=== PATIENT | female | born 1975 | race Caucasian/White ===

== ENCOUNTER 2018-04-12 19:00 | Emergency (ER) | payer OTHER ==
[2018-04-12 19:21] LABS: BASOPHILS % (AUTO) 0.4 %; EOSINOPHILS # (AUTO) 0.1 10^3/uL (0.0-0.7); EOSINOPHILS % (AUTO) 1.8 %; HGB - HEMOGLOBIN 14.1 g/dL (12.0-16.0); LYMPHOCYTES # (AUTO) 2.2 10^3/uL (1.5-3.5); LYMPHOCYTES % (AUTO) 31.8 %; MEAN CORPUSCULAR HEMOGLOBIN 31.8 pg (27.0-31.0); MEAN CORPUSCULAR HGB CONC 33.3 g/dL (32.0-36.0); MEAN CORPUSCULAR VOLUME 95.5 fL (81.0-99.0); MEAN PLATELET VOLUME 8.8 fL (7.9-10.8); MONOCYTES # (AUTO) 0.6 10^3/uL (0.0-1.0); MONOCYTES % (AUTO) 8.8 %; NEUTROPHILS # (AUTO) 3.9 10^3/uL (1.5-6.6); NEUTROPHILS % (AUTO) 57.2 %; PLT - PLATELET COUNT 221 10^3/uL (130-450); RED BLOOD COUNT 4.43 10^6/uL (4.20-5.40); RED CELL DISTRIBUTION WIDTH 12.9 % (12.0-15.0); WHITE BLOOD COUNT 6.9 x10^3/uL (4.8-10.8)
[2018-04-12] MEDS ORDERED: KETOROLAC 60 MG/2 ML VIAL IVP STA (19:22)
--- NOTE | 2018-04-12 19:24 | ED Physician Documentation ---
PD HPI ABD PAIN - Stated complaint Stated Complaint: ABD PX - Chief complaint Chief Complaint: Abd Pain - History obtained from History obtained from: Patient - History of Present Illness Timing - onset: Today Timing - duration: Hours (2) Timing - details: Abrupt onset Pain level max: 10 Pain level now: 10 Quality: Aching, Pain Location: All over / everywhere, Other (R flank) Improved by: Other (nothing) Worsened by: Other (nothing) Associated symptoms: No: Fever, Nausea, Vomiting, Hematemesis, Diarrhea, Constipation, Melena, Hematochezia, Dysuria, Hematuria, Chest pain Similar symptoms before: Diagnosis (kidney stone) Recently seen: Not recently seen Review of Systems Ten Systems: 10 systems reviewed and negative Constitutional: denies: Fever, Chills Ears: denies: Ear pain Nose: denies: Rhinorrhea / runny nose, Congestion Throat: denies: Oral lesions / sores Cardiac: denies: Chest pain / pressure Respiratory: denies: Cough, Wheezing GI: denies: Vomiting, Diarrhea, Hematemesis, Bloody / black stool : denies: Dysuria, Frequency, Hesitancy, Now EGA Skin: denies: Rash Musculoskeletal: denies: Neck pain, Back pain Neurologic: denies: Headache PD PAST MEDICAL HISTORY - Past Medical History Past Medical History: Yes Cardiovascular: 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[employer]: Endometriosis, Ovarian cysts - Past Surgical History Past Surgical History: Yes General: Cholecystectomy /[employer]NA[employer]: Other - Present Medications Home Medications: Ambulatory Orders Medication Instructions Recorded Confirmed Etonogestrel [Nexplanon] SUBQ DAILY 04/12/18 Ondansetron Odt [Zofran] 4 mg TL Q6H PRN #10 tablet 04/13/18 Oxycodone HCl/Acetaminophen 1 - 2 each PO Q6H PRN #14 tablet 04/13/18 [Percocet 5-325 mg Tablet] - Allergies Allergies/Adverse Reactions: Allergies Allergy/AdvReac Type Severity Reaction Status Date / Time erythromycin base Allergy Hives Verified 04/12/18 19:09 - Social History Does the pt smoke?: No Smoking Status: Never smoker Does the pt drink ETOH?: Yes Does the pt have substance abuse?: No - Immunizations Immunizations are current?: Yes - POLST Patient has POLST: No PD ED PE NORMAL - Vitals Vital signs reviewed: Yes - General General: Alert and oriented X 3, Well developed/nourished, Other (rocking, crying.) - HEENT HEENT: PERRL, Moist mucous membranes, Pharynx benign - Neck Neck: Supple, no meningeal sign - Cardiac Cardiac: RRR, Strong equal pulses - Respiratory Respiratory: No respiratory distress, Clear bilaterally - Abdomen Abdomen: Soft, Other (TTP R LQ, no pertioneal signs) - Back Back: No CVA TTP, No spinal TTP - Derm Derm: Warm and dry - Extremities Extremities: No edema - Neuro Neuro: Alert and oriented X 3 Results - Vitals Vitals: Vital Signs - 24 hr 04/12/18 04/12/18 04/12/18 19:05 21:45 23:03 Temperature 36.6 C Heart Rate 93 85 Respiratory 18 16 18 Rate Blood Pressure 104/85 H 100/58 L O2 Saturation 94 100 04/12/18 04/13/18 23:05 00:10 Temperature Heart Rate 84 Respiratory 19 17 Rate Blood Pressure 100/69 O2 Saturation 100 Oxygen O2 Source Room air - Labs Labs: Laboratory Tests 04/12/18 04/12/18 04/12/18 19:18 19:18 22:15 WBC 6.9 RBC 4.43 Hgb 14.1 Hct 42.3 MCV 95.5 MCH 31.8 H MCHC 33.3 RDW 12.9 Plt Count 221 MPV 8.8 Neut # (Auto) 3.9 Lymph # (Auto) 2.2 [place] # (Auto) 0.6 Eos # (Auto) 0.1 Baso # (Auto) 0.0 Absolute Nucleated RBC 0.00 Nucleated RBC % 0.0 Sodium 136 Potassium 3.5 Chloride 105 Carbon Dioxide 21 Anion Gap 10.0 BUN 16 Creatinine 0.7 Estimated GFR (MDRD) 91 Glucose 118 H Calcium 9.3 Total Bilirubin 0.8 AST 62 H ALT 34 Alkaline Phosphatase 53 Total Protein 7.5 Albumin 4.1 Globulin 3.4 Albumin/Globulin Ratio 1.2 Lipase 26 Urine Color YELLOW Urine Clarity CLEAR Urine pH 7.0 Ur Specific [place] <=1.005 Urine Protein NEGATIVE Urine Glucose (UA) NEGATIVE Urine Ketones NEGATIVE Urine Occult Blood NEGATIVE Urine Nitrite NEGATIVE Urine Bilirubin NEGATIVE Urine Urobilinogen 2 H Ur Leukocyte Esterase NEGATIVE Ur Microscopic Review NOT INDICATED Urine Culture Comments NOT INDICATED Urine HCG, Qual NEGATIVE - Rads (name of study) CT abd/pelvis Radiology: Prelim report reviewed, EMP read contemporaneously, See rad report ( No acute abnormalities. 3.7 cm right ovarian cyst) pelvic US Radiology: Prelim report reviewed, EMP read contemporaneously, See rad report ( Cyst with simple septation measuring up to 4.2 cm in the right ovary, highly likely benign. Follow-up ultrasound could be performed in 6 weeks. Normal blood flow) PD MEDICAL DECISION MAKING - ED course Complexity details: reviewed results, re-evaluated patient, considered differential, d/w patient, d/w family ED course: Patient is a 42-year-old female with acute abdominal pain tonight. Appears to have a large right ovarian cyst, no other acute findings on CT scan or ultrasound to explain her symptoms. No evidence of ovarian torsion. She does state that she is done having children. Pain is well-controlled abdomen is still mildly tender on repeat evaluation, but she is tolerating p.o. without difficulty in the emergency department. She would like to go home at this time. Patient and family counseled regarding signs and symptoms for which I believe and urgent re-evaluation would be necessary. Patient with good understanding of and agreement to plan and is comfortable going home at this time This document was made in part using voice recognition software. While efforts are made to proofread this document, sound alike and grammatical errors may occur. - Sepsis Event Vital Signs: Vital Signs - 24 hr 04/12/18 04/12/18 04/12/18 19:05 21:45 23:03 Temperature 36.6 C Heart Rate 93 85 Respiratory 18 16 18 Rate Blood Pressure 104/85 H 100/58 L O2 Saturation 94 100 04/12/18 04/13/18 23:05 00:10 Temperature Heart Rate 84 Respiratory 19 17 Rate Blood Pressure 100/69 O2 Saturation 100 Oxygen O2 Source Room air Departure - Departure Disposition: 01 Home, Self Care Clinical Impression: Ovarian cyst Qualifiers: Laterality: right Qualified Code(s): N83.201 - Unspecified ovarian cyst, right side Condition: Stable Instructions: ED Abdominal Pain Unkn Cause, ED Cyst Ovarian Follow-Up: your,doctor in 1 week [Other] Prescriptions: Ondansetron Odt [Zofran] 4 mg TL Q6H PRN #10 tablet PRN Reason: Nausea / Vomiting Oxycodone HCl/Acetaminophen [Percocet 5-325 mg Tablet] 1 - 2 each PO Q6H PRN # 14 tablet PRN Reason: pain Comments: Your symptoms appear to be related to an ovarian cyst. You should have a repeat ultrasound in approximately 6 weeks to ensure resolution. Return if you worsen. Discharge Date/Time: 04/13/18 00:10
[2018-04-12] MEDS: ONDANSETRON 4 MG/2 ML VIAL IVP STA ×2 (19:27→21:29)
[2018-04-12 19:34] LABS: ALBUMIN 4.1 g/dL (3.2-5.5); ALBUMIN/GLOBULIN RATIO 1.2 (1.0-2.2); BILIRUBIN,TOTAL 0.8 mg/dL (0.2-1.0); CALCIUM 9.3 mg/dL (8.5-10.3); CREATININE 0.7 mg/dL (0.4-1.0); TOTAL PROTEIN 7.5 g/dL (6.7-8.2)
[2018-04-12] MEDS: HYDROmorphone 1 MG/ML CARPUJECT IVP STA ×2 (20:10→21:30)
[2018-04-12] MEDS ORDERED: IOPAMIDOL-300 100 ML VIAL ONE (20:13)
[2018-04-12] MEDS ORDERED: IOPAMIDOL-300 100 ML VIAL IVP ONE (20:46)
[2018-04-12] MEDS ORDERED: SODIUM CHLORIDE 0.9% 1,000 ML IV ONE ×2 (20:48)
--- NOTE | 2018-04-12 21:00 | CT Report ---
Procedure Date: 04/12/2018 Accession Number: [id number] / [id number] Procedure: CT - Abdomen/Pelvis W/ CPT Code: FULL RESULT: EXAM: CT ABDOMEN AND PELVIS EXAM DATE: 04/12/2018 08:44 PM. CLINICAL HISTORY: RLQ abd pain. COMPARISONS: None. TECHNIQUE: Routine helical CT imaging was performed through the abdomen and pelvis. IV contrast: ISOVUE 300 100mL. Enteric contrast: No. Reconstructions: Coronal and sagittal. In accordance with CT protocol optimization, one or more of the following dose reduction techniques were utilized for this exam: automated exposure control, adjustment of mA and/or KV based on patient size, or use of iterative reconstructive technique. FINDINGS: ABDOMEN: Lung Bases: Incompletely included lower lungs are grossly clear. Heart size is within normal limits. No basilar effusions. Liver: Unremarkable. Spleen: Unremarkable. Pancreas: Unremarkable. Gallbladder/Bile Ducts: Status post cholecystectomy. Biliary tree is normal caliber. Adrenal Glands: Unremarkable. Kidneys: No mass, calculi, or hydronephrosis. Peritoneum/Mesentery/Bowel: No free fluid, free air, or collection. No intestinal obstruction or inflammation. Appendix not definitively identified. No pericecal inflammatory changes. Lymph nodes: No mesenteric, periportal, or retroperitoneal lymphadenopathy. Vasculature: Abdominal aorta is nonaneurysmal. Portal vein is patent. Hepatic veins are patent. PELVIS: The bladder is unremarkable for the degree of distention. Uterus is present. 3.7 cm cyst in the right ovary with an imperceptible wall. No pelvic lymphadenopathy. Bones: No suspicious osseous lesions. IMPRESSION: No acute abnormalities. 3.7 cm right ovarian cyst. [facility]
[2018-04-12] MEDS ORDERED: HYDROmorphone 1 MG/ML CARPUJECT IVP STA ×2 (21:22→23:08)
[2018-04-12] MEDS ORDERED: ONDANSETRON 4 MG/2 ML VIAL IVP STA (21:22)
[2018-04-12 22:20] LABS: BILIRUBIN,URINE NEGATIVE (NEGATIVE); GLUCOSE, URINE (UA) NEGATIVE (NEGATIVE); KETONES,URINE (UA) NEGATIVE (NEGATIVE); LEUKOCYTE ESTERASE, URINE NEGATIVE (NEGATIVE); NITRITE,URINE NEGATIVE (NEGATIVE); OCCULT BLOOD,URINE NEGATIVE (NEGATIVE); PROTEIN,URINE NEGATIVE (NEGATIVE); UROBILINOGEN,URINE 2 E.U./dL (NORMAL)
[2018-04-12 22:23] LABS: CLARITY,URINE CLEAR (CLEAR); HCG UR QUAL NEGATIVE
[2018-04-12] MEDS ORDERED: oxyCOD/ACETAMIN 5 MG/325 MG TABLET PO STA (23:07)
--- NOTE | 2018-04-12 23:18 | Ultrasound Report ---
Procedure Date: 04/12/2018 Accession Number: [id number] / [id number] Procedure: US - Pelvic w/Transvag+Doppler Ltd CPT Code: FULL RESULT: EXAM: PELVIC ULTRASOUND EXAM DATE: 04/12/2018 10:45 PM. CLINICAL HISTORY: R pelvic pain, ovarian cyst. COMPARISON: None. TECHNIQUE: Realtime transabdominal pelvic scan performed to identify the uterus and adnexa and as an overview of other pelvic structures, followed by transvaginal scan to provide greater detail of the uterus and adnexa, with static image documentation. FINDINGS: Uterus: 7.6 x 4.9 x 5.5 cm, volume 108 cc. Anteverted position. Normal overall size and echotexture. Masses: None. Endometrium: 8 mm. No focal endometrial abnormalities. Cervix: Unremarkable. Right Ovary: 5.6 x 4.1 x 4.4 cm, volume 52.9 cc. Normal echotexture and blood flow. 4.2 x to 0.6 x 3.3 cm simple appearing cyst with a thin septation. Left Ovary: 2.9 x 2.0 x 2.2 cm, volume 6.5 cc. Normal echotexture and blood flow. Free Fluid: None. Other: None. IMPRESSION: Cysts with simple septation measuring up to 4.2 cm and the right ovary, highly likely benign. Follow-up ultrasound could be performed in 6 weeks. [facility]
[2018-04-12 23:20] VITALS: BP 100/69
[2018-04-13] MEDS ORDERED: oxyCODONE/ACET 5/325 Prepack 4 PO ONE (00:16)
[2018-04-13] MEDS ORDERED: ONDANSETRON ODT 4 MG Prepack 2 TL ONE (00:16)
== END 2018-04-13 00:10 | disposition home or self-care (01) ==
LOC: ED 19:00
DX: N83.201 Unspecified ovarian cyst, right side (principal)
CPT/HCPCS: 36415; 74177; 76830; 76856; 80053; 81003; 81025; 83690; 85025; 93976; 96361; 96374; 96375; 96376; 99283; 99284; A9270; J1170; Q9967; 81001; 87086